=== PATIENT | male | born 1995 | race African-American/Black ===

== ENCOUNTER 2021-06-03 13:37 | Emergency (ER) | payer MEDICAID ==
[~2021-06-03] VITALS: Ht 182.9 cm; Wt 82.0 kg
[2021-06-03 13:53] VITALS: BP 124/76
[2021-06-03] MEDS ORDERED: ACET-2708 MT (15:06)
[2021-06-03] MEDS ORDERED: NAPR-1176 MT (15:06)
== END 2021-06-03 15:48 | disposition home or self-care (01) ==
LOC: ER 13:37
DX: G89.29 Other chronic pain (principal); M25.552 Pain in left hip; M25.551 Pain in right hip
CPT/HCPCS: 99282

== ENCOUNTER 2022-07-05 09:10 | Emergency (ER) | payer MEDICAID ==
[~2022-07-05] VITALS: Ht 182.9 cm; Wt 80.0 kg
[~2022-07-05 09:10] MED LIST: ACET-2708 MT; NAPR-1176 MT
[2022-07-05] MEDS ORDERED: METHYLPREDNISOLONE SOD SUCC 125 MG/2 ML VIAL IV ONE (10:00)
[2022-07-05] MEDS ORDERED: FAMOTIDINE 20MG/2ML VIAL IV ONE (10:00)
[2022-07-05] MEDS ORDERED: DIPHENHYDRAMINE 50MG/ML VIAL IV ONE (10:00)
[2022-07-05 10:04] VITALS: BP 112/71
[2022-07-05 10:04] LABS: BASOPHILS % 0.6 % (0.0-2.0); EOSINOPHILS % 1.2 % (0.0-5.0); HEMATOCRIT. 47.2 % (42.0-52.0); HEMOGLOBIN. 15.4 g/dL (14.0-18.0); LYMPHOCYTES % 11.2 % (20.0-50.0); MEAN CORPUSCULAR HEMOGLOBIN 27.1 pg (28.0-32.0); MEAN CORPUSCULAR VOLUME 83.1 fL (80.0-94.0); MEAN PLATELET VOLUME 7.1 fl (7.4-10.4); MONOCYTES % 7.8 % (2.0-8.0); NEUTROPHILS % 79.2 % (40.0-76.0); PLATELET 337 x1000/uL (130-400); RED BLOOD CELL COUNT 5.68 mill/uL (4.7-6.1); RED CELL DISTRIBUTION WIDTH 13.4 % (11.6-14.6)
[2022-07-05 10:13] LABS: CHLORIDE 108 mEq/L (98-107)
[2022-07-05] MEDS ORDERED: P50 MT (12:03)
[2022-07-05] MEDS ORDERED: CETI10TA6 MT (12:03)
[2022-07-05] MEDS ORDERED: EPIN0.3P3 IM (12:05)
== END 2022-07-05 12:14 | disposition home or self-care (01) ==
LOC: ER 09:10
DX: T78.40XA Allergy, unspecified, initial encounter (principal); X58.XXXA Exposure to other specified factors, initial encounter
CPT/HCPCS: 36415; 80053; 85025; 96374; 96375; 99284; J1200; J2930; J3490; Z7610

== ENCOUNTER 2024-01-15 20:13 | Emergency (ER) | payer MEDICAID ==
[~2024-01-15] VITALS: Ht 180.3 cm; Wt 83.0 kg
[~2024-01-15 20:13] MED LIST changes: +CETI10TA6 MT; +EPIN0.3P3 IM; +P50 MT
[2024-01-15 20:18] VITALS: BP 119/88; PULSE 66; RESP 18; TEMP 98; O2SAT 99
[2024-01-15 21:48] LABS: BASOPHILS % 0.5 % (0.0-2.0); EOSINOPHILS % 4.7 % (0.0-5.0); HEMATOCRIT. 40.7 % (42.0-52.0); HEMOGLOBIN. 13.6 g/dL (14.0-18.0); LYMPHOCYTES % 40.9 % (20.0-50.0); MEAN CORPUSCULAR HEMOGLOBIN 27.9 pg (28.0-32.0); MEAN CORPUSCULAR HGB CONC 33.3 g/dL (31.0-37.0); MEAN CORPUSCULAR VOLUME 83.5 fL (80.0-94.0); MEAN PLATELET VOLUME 7.3 fl (7.4-10.4); MONOCYTES % 11.4 % (2.0-8.0); NEUTROPHILS % 42.5 % (40.0-76.0); PLATELET 321 x1000/uL (130-400); RED BLOOD CELL COUNT 4.88 mill/uL (4.7-6.1); RED CELL DISTRIBUTION WIDTH 13.1 % (11.6-14.6); WHITE BLOOD COUNT 6.3 x1000/uL (4.5-11.0)
[2024-01-15 22:12] LABS: ALANINE AMINOTRANSFERASE < 7 IU/L (10-49); ALBUMIN 4.2 g/dL (3.2-4.8); ASPARTATE AMINOTRANSFERASE 16 IU/L (<34); BILIRUBIN TOTAL 0.4 mg/dL (0.1-1.0); CALCIUM 8.9 mg/dL (8.7-10.4); CARBON DIOXIDE 28 mEq/L (21-32); CHLORIDE 106 mEq/L (98-107); CREATININE 1.1 mg/dL (0.6-1.3); GLUCOSE 86 mg/dL (70-105); POTASSIUM 4.2 mEq/L (3.5-5.1); SODIUM 139 mEq/L (136-145); UREA NITROGEN BLOOD 7 mg/dL (9-23)
== END 2024-01-16 01:36 | disposition left against medical advice (07) ==
LOC: ER 20:13
DX: R10.9 Unspecified abdominal pain (principal); Z53.21 Procedure and treatment not carried out due to patient leaving prior to being seen by health care provider
CPT/HCPCS: 36415; 80053; 85025; 99281; 99283